=== PATIENT | male | born 1960 ===

== ENCOUNTER → 2016-11-02 | Outpatient (CLI) | payer MEDICARE, MEDICAID ==
[~2016-11-02] MED LIST: AMBIEN10 MG PO; CORTEF5 MG PO; FEOSOL325 MG PO; FLOMAX0.4 MG PO; LEVOTHROID (S100 MCG PO; METAMUCIL PACKE1 PKT PO; MIRALAX119 GM PO; MIRALAX17 GM PO; NORCO 5-325 TA1 EACH PO; XYLOCAINE 2%20 MG/ML TOP
== END | disposition disaster alternative care site (69) ==
LOC: GRAD 12:03
DX: R17 Unspecified jaundice (principal); R91.1 Solitary pulmonary nodule; K80.50 Calculus of bile duct without cholangitis or cholecystitis without obstruction; K82.8 Other specified diseases of gallbladder
CPT/HCPCS: Q9967

== ENCOUNTER 2016-11-06 08:12 | Observation (INO) | payer MEDICARE, MEDICAID ==
[~2016-11-06] VITALS: Ht 172.7 cm; Wt 84.4 kg
--- NOTE | ~2016-11-06 | OR ---
PATIENT'S NAME: MELIA RUCKER [facility] AGE: 56 Y [address] ROOM: [place] [address] LOCATION: [facility] [place] ADMIT DATE: 11/06/2016 OR/Procedure Report DISCHARGE DATE: FAMILY PHYSICIAN: Aldair Umaña MD ATTENDING PHYSICIAN: HEAVEN LYLE SURGEON: Melia Francisco MD CONCRETE MIXER: Wendy Bro PA-C. DATE OF PROCEDURE: 11/07/2016 PREOPERATIVE DIAGNOSES: 1. Cholelithiasis with developing porcelain gallbladder. 2. Choledocholithiasis, status post endoscopic retrograde cholangiopancreatography. PROCEDURE PERFORMED: Robotic-assisted laparoscopic cholecystectomy. ANESTHESIA: General endotracheal. ESTIMATED BLOOD LOSS: Less than 10 mL. SPECIMEN: Gallbladder. REASON FOR PROCEDURE: The patient is a 56-year-old male who developed some jaundice last week and was found to have elevated bilirubin and liver function tests. A CT scan showed cholelithiasis with some developing porcelain gallbladder as well as evidence of choledocholithiasis. His LFTs have actually improved since then. An ERCP was done yesterday with stent placement. After discussing the risks and benefits, the patient elected to proceed with cholecystectomy. FINDINGS: The patient had considerable fatty infiltration of the gallbladder wall, consistent with chronic cholecystitis. We did have to place an extra 5- mm assist port to help with retraction. PROCEDURE IN DETAIL: The patient was taken to the operating suite and placed in the supine position. After general endotracheal anesthesia was obtained, the abdomen was prepped with ChloraPrep and sterilely draped. Marcaine was infiltrated into the incision sites. A 2-cm transverse infraumbilical incision was made. The fascia was grasped and elevated and a Veress needle was used to obtain a pneumoperitoneum. An 8-mm bladeless robotic trocar was then passed across the abdominal wall. We then placed 3 other 8-mm bladeless trocars under direct visualization. The robot was docked to the trocars and centered on the gallbladder. We initially moved to the console and began the cholecystectomy. Unfortunately, there was so much omentum and distention that we could not see the neck and infundibulum area very well. I ended up PATIENT'S NAME: MELIA RUCKER [facility] AGE: 56 Y [address] ROOM: [address] [address] LOCATION: [facility] [place] ADMIT DATE: 11/06/2016 OR/Procedure Report DISCHARGE DATE: FAMILY PHYSICIAN: Aldair Umaña MD ATTENDING PHYSICIAN: HEAVEN LYLE scrubbing back into the case and we placed a 5-mm bladeless trocar for an assist port. The 5-mm fan retractor was then advanced through this and used to retract some of the stomach and omentum away from the neck area. I then went back to the console. We were able to grasp the fundus of the gallbladder and elevate it. The patient had a quite impressive fatty infiltration of the wall of the gallbladder. We began dissecting through this and we were able to expose the cystic duct and skeletonize it all the way up to the gallbladder wall. Once fully skeletonized, Endo Clips were placed proximally and distally and the cystic artery was divided with cautery. A single clip was placed on a small cystic artery. We then mobilized the gallbladder free of the liver bed using cautery. Once fully mobilized, the gallbladder was left in the right upper quadrant. The instruments were withdrawn. The robot was undocked. We then grasped the gallbladder and carefully withdrew it through the umbilical opening. We did have to stretch the fascial opening somewhat. The right upper quadrant was inspected, there were no signs of bleeding. Surgical clips were in place. The abdomen was scanned. No other abnormalities were seen, but the patient has quite considerable omentum that made visualization difficult. The trocars were all withdrawn. The pneumoperitoneum was evacuated. The fascia at the umbilicus was closed with a Vicryl suture. The skin incisions were closed with subcuticular Monocryl. Benzoin, Steri-Strips, and gauze dressings were applied. POSTPROCEDURE PLAN: The patient will be sent to recovery and then to the floor. We will gradually advance his diet as tolerated. We will plan on rechecking his lab work in the morning. Hopefully, he can go home tomorrow. MD MAGGIE GONZALEZ/yandel /[id number] CC: Aldair Umaña MD d: 11/07/16 1839 t: 11/10/16 [facility], OPERATIVE SUMMARY
--- NOTE | ~2016-11-06 | DS ---
PATIENT'S NAME: MEILA LEIJA [facility] AGE: 56 Y [address] ROOM: [address] [address] LOCATION: [facility] [place] ADMIT DATE: 11/06/2016 Discharge Summary DISCHARGE DATE: 11/08/2016 FAMILY PHYSICIAN: Aldair Umaña MD ATTENDING PHYSICIAN: Nataly Jacques DIAGNOSES: 1. Porcelain gallbladder. 2. Cholelithiasis. 3. Choledocholithiasis per CT. 4. Urinary Retention SUMMARY: Melia Leija is a 56-year-old male, who presented to Dr. Umaña's clinic last week with jaundice. He had noticed sierra colored stools and dark urine. He denied any abdominal pain. The patient had liver function tests that showed a total bilirubin of 3.3, alkaline phosphatase 210, AST 474, ALT 572. A CT scan was done at [facility] that showed the liver, spleen, and pancreas to be normal. The gallbladder showed wall calcification, especially at the fundus consistent with developing porcelain gallbladder. There were also possible small gallstones seen. The common bile duct was not dilated, but appeared to have 3 gallstones in the distal duct. The patient was seen by Gastroenterology and was scheduled for an ERCP on November 06. The patient states that his jaundice improved prior to admission for the ERCP. The patient did undergo the ERCP on November [address] Clements. He did a biliary sphincterotomy with common bile duct and pancreatic duct stents. No stones were seen within the common bile duct. He recommended proceeding with laparoscopic cholecystectomy and plan to return in [address] Francisco evaluated the patient on the afternoon of November 06 in consultation and recommended proceeding with removal of the gallbladder. Risks, benefits, and alternatives were discussed. The patient proceeded to the operating room on November 07 for robotic-assisted laparoscopic cholecystectomy. Please see his procedure note for specifics. Postoperatively, the patient was allowed activity as tolerated. Diet was advanced as tolerated. Sabina was ordered for pain control along with Tylenol. Zofran was ordered for nausea. On the morning of postop day #1, the patient was sore. He had no nausea. He was voiding small amounts. Vital signs were stable. White blood cell count was 14.4, hemoglobin 10.1. Liver function tests were continuing to improve with total bilirubin of 0.8, alkaline phosphatase 158, AST 45, and ALT 107. The patient was motivated to go home today. We will check a postvoid bladder scan, and as long as he is emptying okay, then we will plan on discharge later today. DISCHARGE INSTRUCTIONS: Include no restrictions on diet. Activity as tolerated. He will remove the dressings in 2 to 3 days. He will follow up with Dr. Francisco in 1 to 2 weeks and follow up with Gastroenterology for stent removal in 2 weeks. PATIENT'S NAME: MELIA LEIJA [facility] AGE: 56 Y [address] ROOM: [place] [address] LOCATION: [facility] [place] ADMIT DATE: 11/06/2016 Discharge Summary DISCHARGE DATE: 11/08/2016 FAMILY PHYSICIAN: Aldair Umaña MD ATTENDING PHYSICIAN: Nataly Jacques DISCHARGE MEDICATIONS: Include resuming his usual home medicines including, 1. Levothroid 100 mcg p.o. daily. 2. Xylocaine 2% Jelly as needed. 3. Cortef 25 mg in the morning and 12.5 mg every evening. 4. MiraLAX powder 17 g p.o. daily. 5. Metamucil packet 1 packet p.o. daily p.r.n. A prescription was written for Sabina 5/325 one to two p.o. q.4 hours p.r.n. pain, dispensing 20 with no refills. For specifics on day-to-day care, please refer to the hospital chart. DELFINO ALMARAZ PA-C FOR MELIA FRANCISCO MD KDK/modl /[id number] CC: MD Nataly Crawford APRN d: 11/09/16 0426 t: 11/13/16 1217, DISCHARGE SUMMARY
--- NOTE | ~2016-11-06 | CON ---
PATIENT'S NAME: MELIA LEIJA [facility] AGE: 56 Y [address] ROOM: [place] [address] LOCATION: [facility] [place] ADMIT DATE: 11/06/2016 Consultation DISCHARGE DATE: FAMILY PHYSICIAN: Aldair Umaña MD ATTENDING PHYSICIAN: NATALY JACQUES DATE OF CONSULTATION: 11/06/2016 REFERRING PHYSICIAN: CHRIS HERNANDEZ MD CONSULTATION NOTE REQUESTING PHYSICIAN: Nataly Jacques APRN with Gastroenterology. REASON FOR CONSULTATION: Porcelain gallbladder by CT and choledocholithiasis by CT. HISTORY OF PRESENT ILLNESS: Melia Leija is a 56-year-old male who states he was in his usual state of health up until the Easter when he started to notice jaundice, dark urine, and sierra-colored stools. He states that they got worse over the next couple days and he presented to Dr. Umaña's office for evaluation on November 01. The patient was found to have a bilirubin of 3.3, alkaline phosphatase 210, AST 474, and ALT 572. The patient subsequently had a CT scan done at [facility] that showed the liver, spleen, and pancreas to be normal. The gallbladder showed wall calcification especially at the fundus consistent with developing porcelain gallbladder. There were also possible small stones in the gallbladder. The common bile duct was not dilated, but there appeared to be at least three gallstones in the distal duct. The patient also had a prior history of a nodule in the right lung which had been followed by CT and this remained stable. The patient was scheduled with Gastroenterology. Nataly Jacques APRN contacted myself on November 02 requesting that we coordinate removal of the gallbladder with the ERCP. The patient states that he had been having indigestion for the past couple weeks. He denies any abdominal pain. No nausea or vomiting. He had never noticed any issues prior to two weeks ago. The patient states that his urine and stool have returned to normal. PAST MEDICAL HISTORY: ALLERGIES: NONE. MEDICATIONS: PATIENT'S NAME: MELIA LEIJA [facility] AGE: 56 Y [address] ROOM: [place] [address] LOCATION: [facility] [place] ADMIT DATE: 11/06/2016 Consultation DISCHARGE DATE: FAMILY PHYSICIAN: Aldair Umaña MD ATTENDING PHYSICIAN: NATALY JACQUES Include: 1. Xylocaine 2% jelly topically p.r.n. 2. Levothroid 100 mcg p.o. q. day. 3. Hydrocortisone 25 mg p.o. q.a.m. and 12.5 mg p.o. at bedtime. 4. MiraLAX powder 17 g p.o. q. day p.r.n. constipation. 5. Metamucil 1 packet p.o. q. day p.r.n. constipation. ILLNESSES: 1. History of pituitary tumor status post two brain surgeries and radiation. Now with resultant short-term memory. 2. Hypothyroidism. 3. Hypercholesterolemia. 4. Adrenal insufficiency. PAST SURGICAL HISTORY: Operations include: 1. Two brain surgeries. 2. Ankle surgery. 3. Colonoscopy, August 2015. SOCIAL HISTORY: The patient lives alone. He works two part-time jobs, one for [employer] and [employer] and the other driving the ride bus. He states that he quit smoking 1-2 years ago. He was smoking 2 packs of cigarettes per day and had done so for approximately 40 years. He also quit drinking alcohol about 5 years ago and reports prior heavy use. He does have family around the neighboring town but nobody who could necessarily come and stay with him. FAMILY HISTORY: Not obtained. REVIEW OF SYSTEMS: The patient denies any recent coughs or colds. No shortness of breath or chest pain. His bowels have been soft. No blood in his stool. No pain or frequency of urination. He states that he did have some urgency during the time of the jaundice but that has gotten better. PHYSICAL EXAMINATION: VITAL SIGNS: Per nursing sheet. GENERAL: A 56-year-old male, who is alert, pleasant, cooperative, in no acute distress. EYES, EARS, NOSE, AND THROAT: Grossly normal. LUNGS: Clear. HEART: Regular. ABDOMEN: Bowel sounds present. Abdomen is soft, with very mild tenderness in PATIENT'S NAME: MELIA LEIJA [facility] AGE: 56 Y [address] ROOM: [address] [address] LOCATION: [facility] [place] ADMIT DATE: 11/06/2016 Consultation DISCHARGE DATE: FAMILY PHYSICIAN: Aldair Umaña MD ATTENDING PHYSICIAN: FREEZE,NATALY M the right upper quadrant. He has a small epigastric scar that is from a mole removal. EXTREMITIES: The patient appears to move all extremities equally. LABORATORY DATA: Laboratory work from November 01 showed a white blood cell count of 10.8, hemoglobin 13.3, hematocrit 40.7, and platelets 296,000. Sodium 137, potassium 4.3, chloride 104, CO2 of 24, BUN 15, creatinine 1.20, total bilirubin 3.3, alkaline phosphatase 210, AST 474, ALT 572, and amylase 78. A CT scan done on November 02 again showed the lung nodule to be stable. The liver, spleen, and pancreas were normal. The gallbladder showed the wall calcification consistent with developing porcelain gallbladder. Possible small gallstones present. At least three stones were seen in the common bile duct. ERCP completed today showed no common bile duct stone. The common bile duct was not dilated. The pancreatic duct and common bile duct stents were placed. ASSESSMENT: 1. A 56-year-old male with recent history of jaundice with CT scan findings of choledocholithiasis and a porcelain gallbladder status post endoscopic retrograde cholangiopancreatography. 2. History of pituitary tumor status post brain surgery and radiation. PLAN: I discussed the findings on CT scan with the patient. Discussed recommendations for removal of the gallbladder given the history that he most likely passed a gallstone, but also with the concern for porcelain gallbladder. I discuss the operation being laparoscopic with potential of switching to an open procedure. If we are able to complete this laparoscopically, he would be ready to discharge home within 12 to 24 hours postoperatively. We would expect that he would be able to ambulate and get back to his normal activities within about a week. The operation along with the risks of bleeding, infection, injury to other structures, bile leak, heart problems, lung problems, etc, were discussed. The patient's questions and concerns were addressed. Dr. Francisco will be seeing the patient momentarily. We will review over the CT scan findings and labs and will make final recommendations in regard to removal of the gallbladder. The patient will be tentatively scheduled for a laparoscopic cholecystectomy tomorrow. Since the patient lives alone and does not have anybody to help, I would expect that he will need to stay the night and be discharged to home on SundayNovember 08. The patient's questions and concerns were addressed. Dr. Francisco again will be seeing the patient momentarily, is involved in assessment and plan, and is available for supervision. PATIENT'S NAME: MELIA LEIJA [facility] AGE: 56 Y [address] ROOM: [address] [address] LOCATION: [facility] [place] ADMIT DATE: 11/06/2016 Consultation DISCHARGE DATE: FAMILY PHYSICIAN: Aldair Umaña MD ATTENDING PHYSICIAN: NATALY JACQUES DELFINO ALMARAZ PA-C FOR MELIA FRANCISCO MD KDK/óscarl /[id number] d: 11/06/16 1918 t: 11/13/16 1219, CONSULTATION REPORT
--- NOTE | ~2016-11-06 | HP ---
PATIENT'S NAME: MELIA RUCKER [facility] AGE: 56 Y [address] ROOM: [place] [address] [place]: [facility] [place]MIT DATE: 11/06/2016 History & Physical DISCHARGE DATE: FAMILY PHYSICIAN: Rajat Layton MD ATTENDING PHYSICIAN: HEAVEN LYLE DATE OF SERVICE: CHIEF COMPLAINT: Porcelain gallbladder. HISTORY OF PRESENT ILLNESS: The patient is a 56-year-old male who I saw on the 01/11 with complaints of dark urine and painless jaundice. His evaluation revealed elevated ALT of 572, AST of 474, alkaline phosphatase of 210, and bilirubin of 3.3. His amylase is normal. He is subsequent for a CT scan, which did not show any mass present like we are suspicious for but did shows three common bile duct stones with the biggest one being 11 mm in size. He also was found to have a porcelain gallbladder. He subsequently had an ERCP done today, which did not show any stones and stent was placed by Dr. Clements, but now will be admitted and will have his gallbladder removed for porcelain gallbladder. In the morning by Dr. Francisco. He is clinically stable at this time. PAST MEDICAL HISTORY: Significant for: 1. Adrenal insufficiency. 2. Anal stenosis. 3. Anemia of chronic disease. 4. Chronic constipation. 5. Overweight with a BMI of 29. 6. Cigarette and nicotine dependence in remission. 7. Diverticulosis. 8. Hyperlipidemia. 9. Hyponatremia. 10. Hypopituitarism. 11. History of meningioma. 12. Pituitary macroadenoma. 13. Hypothyroidism. 14. Prediabetes. 15. History of pulmonary nodules. CHRONIC MEDICATIONS: Include levothyroxine 100 mcg daily and hydrocortisone 5 tablets in the morning. He was supposed to be taking that for now, but he does not take them routinely. PATIENT'S NAME: MELIA RUCKER [facility] AGE: 56 Y [address] ROOM: [place] [address] LOCATION: [facility] [place] ADMIT DATE: 11/06/2016 History & Physical DISCHARGE DATE: FAMILY PHYSICIAN: Rajat Layton MD ATTENDING PHYSICIAN: HEAVEN LYLE ALLERGIES: NONE. PRIOR SURGERIES: He had ankle surgery in 1990. He has had a colonoscopy done and a pituitary removal by transnasal approach in 1995 and 1997. SOCIAL HISTORY: He is a former smoker. Does not currently smoke. He had smoked one pack per day. He does drink caffeine everyday. Does not drink alcohol at all. FAMILY HISTORY: Unremarkable. REVIEW OF SYSTEMS: Denies any chest pain or pressure, shortness of breath, orthopnea, PND. No melena, hematochezia, bright red blood per rectum. All other review of systems are negative. PHYSICAL EXAMINATION: VITAL SIGNS: Blood pressure 1/168 temperature 98.4, weight 190 pounds. Height 5 feet 8 inches. GENERAL APPEARANCE: Nontoxic-appearing male in no acute distress. HEENT: Head is normocephalic and atraumatic. Ears, TMs are clear intact bilaterally. Nose patent. Throat clear. NECK: Supple without lymphadenopathy, JVD, thyromegaly, or bruits. HEART: Regular rate and rhythm without audible murmur. LUNGS: Clear to auscultation bilaterally without wheezes, rhonchi, or rales. ABDOMEN: Soft and nontender and nondistended. Bowel sounds positive. There is no hepatosplenomegaly. No guarding or rebound. EXTREMITIES: No clubbing, cyanosis, or edema. NEURO: No focal deficits. ASSESSMENT: 1. Choledocholithiasis, resolved. 2. Porcelain gallbladder. 3. History of adrenal insufficiency. 4. Pituitary macroadenoma status post resection with resultant hypopituitarism and hypothyroidism. 5. History of diverticulosis. 6. Anemia of chronic disease. 7. History of anal stenosis. PLAN: PATIENT'S NAME: MELIA RUCKER [facility] AGE: 56 Y [address] ROOM: [address] [address] LOCATION: [facility] [place] ADMIT DATE: 11/06/2016 History & Physical DISCHARGE DATE: FAMILY PHYSICIAN: Rajat Layton MD ATTENDING PHYSICIAN: HEAVEN LYLE We will go ahead and place him on observation status. Admit him overnight. Dr. Francisco will see him and will get him set up for a laparoscopic cholecystectomy, if possible. Further recommendations pending the outcome of that. He has voiced understanding of this plan. The rest of his medical issues really are very stable at this point and he is overall feeling good. RAJAT LAYTON MD TAB/modl /[id number] D: [id number] T: [id number] HISTORY & PHYSICAL
[~2016-11-06 08:12] MED LIST changes: -FLOMAX0.4 MG PO; -METAMUCIL PACKE1 PKT PO; -MIRALAX119 GM PO; -NORCO 5-325 TA1 EACH PO
[2016-11-06] MEDS ORDERED: METAMUCIL PACKE1 PKT PO (08:46)
[2016-11-06 14:46] LABS: BASOPHIL # 0.1 K/uL (0.0-0.2); BASOPHIL % 0.6 %; EOSINOPHIL % 0.3 %; HEMATOCRIT 35.6 % (37.0-53.0); HEMOGLOBIN 11.2 g/dL (12.0-17.0); IMMATURE GRANULOCYTE # 0.1 K/uL (0.0-0.3); IMMATURE GRANULOCYTE % 1.2 %; LYMPHOCYTE # 1.2 K/uL (0.8-4.0); LYMPHOCYTE % 11.7 %; MCH 27.6 pg (27.0-34.0); MCHC 31.5 gm/dL (32.0-36.5); MCV 87.7 fl (83.0-98.0); MONOCYTE # 0.2 K/uL (0.0-1.0); MONOCYTE % 2.1 %; MPV 10.3 fl (9.4-12.4); NEUTROPHIL # (ANC) 8.9 K/uL (1.4-9.0); NEUTROPHIL % 84.1 %; NRBC % 0 /100WBC (0-0.00); PLATELET COUNT 227 K/uL (150-450); RBC 4.06 M/uL (4.00-6.00); RDW-CV 15.1 % (11.9-14.6); WBC 10.5 K/uL (4.0-11.0)
[2016-11-06 15:07] LABS: ALBUMIN 3.2 gm/dL (3.5-5.0); ALK PHOS 223 IU/L (33-138); ALT 185 IU/L (12-78); ANION GAP 12.9 (10.0-19.0); AST 105 IU/L (10-40); BLOOD UREA NITROGEN 15 mg/dL (6-24); CALCIUM 8.7 mg/dL (8.5-10.5); CHLORIDE 107 mMol/L (96-110); CO2 25 mMol/L (22-32); CREATININE 1.2 mg/dL (0.6-1.3); ESTIMATED GFR (MDRD EQUATION) > 60; POTASSIUM 3.9 mMol/L (3.7-5.1); SODIUM 141 mMol/L (135-145); TOTAL BILIRUBIN 0.8 mg/dL (0.0-1.5); TOTAL PROTEIN 6.9 g/dL (6.0-8.4)
--- NOTE | 2016-11-06 18:17 | NUR ---
Significant Event: Patient is alert and oriented. Had an ERCP done today. 2 stents were placed, ? of a possible fistula in the small bowel where a stone could have gone through. Patient Has NS running at 100ml/hr. Able to have jello and popsicles, will be NPO after midnight. Will have surgery in the morning with . Calm and cooperative with all cares. Patient states he is tender but does not have pain. Follow up: Pre-op checklist
--- NOTE | 2016-11-07 05:31 | NUR ---
Significant Event: PATIENT IS ALERT AND ORIENTED X4 AMBULATES INDEPENDENTLY IN ROOM. IV TO L WRIST RUNNING AT 100ML HR. HAD AN ERCP YESTERDAY WITH 2 STENTS PUT IN. HAVING GALLBLADDER REMOVED THIS AM. HX OF HTN, CRAINAL SURGERY. NO COMPLAINTS OF PAIN OR DISCOMFORT. Follow up:
[2016-11-07 05:46] LABS: BASOPHIL # 0.1 K/uL (0.0-0.2); BASOPHIL % 0.7 %; EOSINOPHIL # 0.2 K/uL (0.0-0.5); EOSINOPHIL % 1.5 %; HEMATOCRIT 32.5 % (37.0-53.0); HEMOGLOBIN 10.2 g/dL (12.0-17.0); IMMATURE GRANULOCYTE # 0.1 K/uL (0.0-0.3); IMMATURE GRANULOCYTE % 0.5 %; LYMPHOCYTE # 2.7 K/uL (0.8-4.0); MCH 27.3 pg (27.0-34.0); MCHC 31.4 gm/dL (32.0-36.5); MCV 87.1 fl (83.0-98.0); MONOCYTE # 0.6 K/uL (0.0-1.0); MONOCYTE % 5.1 %; MPV 10.1 fl (9.4-12.4); NEUTROPHIL # (ANC) 7.3 K/uL (1.4-9.0); NEUTROPHIL % 67.2 %; NRBC % 0 /100WBC (0-0.00); PLATELET COUNT 200 K/uL (150-450); RBC 3.73 M/uL (4.00-6.00); RDW-CV 15.1 % (11.9-14.6); WBC 10.9 K/uL (4.0-11.0)
[2016-11-07 06:07] LABS: ALBUMIN 2.8 gm/dL (3.5-5.0); ALK PHOS 184 IU/L (33-138); ALT 135 IU/L (12-78); ANION GAP 9.9 (10.0-19.0); AST 68 IU/L (10-40); BLOOD UREA NITROGEN 17 mg/dL (6-24); CALCIUM 8.1 mg/dL (8.5-10.5); CHLORIDE 108 mMol/L (96-110); CO2 28 mMol/L (22-32); CREATININE 1.1 mg/dL (0.6-1.3); ESTIMATED GFR (MDRD EQUATION) > 60; POTASSIUM 3.9 mMol/L (3.7-5.1); SODIUM 142 mMol/L (135-145); TOTAL BILIRUBIN 0.9 mg/dL (0.0-1.5)
--- NOTE | 2016-11-07 09:52 | NUR ---
PT TAKEN DOWN TO PRE-OP FOR SURGERY
--- NOTE | 2016-11-07 16:24 | NUR ---
Attempted to see patient at 1030 but he was down for surgery. Will follow up with patient tomorrow.
--- NOTE | 2016-11-07 16:32 | NUR ---
Significant Event: PT ARRIVED ON FLOOR FROM PACU AT 1200. POST OP VITALS CONT LAST HOURLY AT 1845. PT HAS AMBULATED ALL AROUND IN THE HALLS AND IN ROOM. DENIES DISCOMFORT. 5 POKE HOLES WITH DRESSINGS PRESENT. HOME TOMORROW. TAKES FOOD AND FLUIDS WELL. VOIDS WELL. Follow up:
[2016-11-08 05:30] LABS: BASOPHIL # 0.1 K/uL (0.0-0.2); BASOPHIL % 0.6 %; EOSINOPHIL # 0.2 K/uL (0.0-0.5); EOSINOPHIL % 1.3 %; HEMATOCRIT 32.2 % (37.0-53.0); HEMOGLOBIN 10.1 g/dL (12.0-17.0); IMMATURE GRANULOCYTE # 0.1 K/uL (0.0-0.3); IMMATURE GRANULOCYTE % 0.6 %; LYMPHOCYTE # 2.6 K/uL (0.8-4.0); LYMPHOCYTE % 18.4 %; MCH 27.9 pg (27.0-34.0); MCHC 31.4 gm/dL (32.0-36.5); MONOCYTE # 1.1 K/uL (0.0-1.0); MONOCYTE % 7.6 %; MPV 10.3 fl (9.4-12.4); NEUTROPHIL # (ANC) 10.3 K/uL (1.4-9.0); NEUTROPHIL % 71.5 %; NRBC % 0 /100WBC (0-0.00); PLATELET COUNT 193 K/uL (150-450); RBC 3.62 M/uL (4.00-6.00); RDW-CV 15.2 % (11.9-14.6); WBC 14.4 K/uL (4.0-11.0)
[2016-11-08 05:45] LABS: ALBUMIN 2.8 gm/dL (3.5-5.0); ALK PHOS 158 IU/L (33-138); ALT 107 IU/L (12-78); ANION GAP 10.8 (10.0-19.0); AST 45 IU/L (10-40); BLOOD UREA NITROGEN 20 mg/dL (6-24); CALCIUM 8.1 mg/dL (8.5-10.5); CHLORIDE 107 mMol/L (96-110); CO2 28 mMol/L (22-32); CREATININE 1.2 mg/dL (0.6-1.3); ESTIMATED GFR (MDRD EQUATION) > 60; POTASSIUM 3.8 mMol/L (3.7-5.1); SODIUM 142 mMol/L (135-145); TOTAL BILIRUBIN 0.8 mg/dL (0.0-1.5)
--- NOTE | 2016-11-08 05:56 | NUR ---
Significant Event: Patient is A&O x 3. Up ad malu in room. Has lap sites x 5 to abdomen. Gauze dressing with shadow drainage. Tolerated dinner well. IV to L) wrist SL. Complained of tolerable pain to right side of abdomen and R) shoulder. Rested well throughout the night. Follow up: Patient to D/C home today.
[2016-11-08 10:12] LABS: BILIRUBIN URINE NEGATIVE (NEGATIVE); BLOOD URINE NEGATIVE /UL (NEGATIVE); COLOR URINE YELLOW (YELLOW); GLUCOSE URINE NEGATIVE (NEGATIVE); KETONE URINE NEGATIVE (NEGATIVE); LEUKOCYTES URINE NEGATIVE /UL (NEGATIVE); NITRITE URINE NEGATIVE (NEGATIVE); PROTEIN URINE NEGATIVE (NEGATIVE); TURBIDITY URINE CLEAR (CLEAR); UROBILINOGEN URINE NORMAL (NORMAL)
[2016-11-08] MEDS ORDERED: NORCO 5-325 TA1 EACH PO (15:06)
[2016-11-08] MEDS ORDERED: FLOMAX0.4 MG PO (15:07)
--- NOTE | 2016-11-08 15:15 | NUR ---
D: ORDERS RECEIVED FOR THE PATIENT TO BE DISCHARGED TO HOME TODAY. I: DISMISSAL INSTRUCTIONS WERE PREPARED AND REVIEWED WITH THE PATIENT VIRTUALLY. THE FOLLOWING INFORMATION WAS DISCUSSED INCLUDING [employer]RAMES TEACHING SHEETS PROVIDED: DISCHARGE INSTRUCTIONS FOR LAP CHOLECYSTECTOMY, ERCP, NORCO, FLOMAX AND PREVENTING DVT. REVIEWED FOLLOW UP APPOINTMENT, ERCP AT [facility] ON November AT 0830 AND NEW PRESCRIPTION HE WILL NEED TO TAKE TO HIS PHARMACY TO FILL. R: THE PATIENT VERBALIZED UNDERSTANDING OF THE DISMISSAL EDUCATION AT THE TIME OF TEACHING WITH NO FURTHER QUESTIONS. P: THE ABOVE INFORMATION WAS SHARED WITH THE PRIMARY NURSE AND THE CHARGE NURSE THAT THE PATIENT'S DISMISSAL EDUCATION WAS COMPLETED. THE PATIENT IS READY FOR DISCHARGE TO THE FRONT DOOR VIA WHEEL CHAIR BY NURSING STAFF.
--- NOTE | 2016-11-08 17:17 | NUR ---
Significant Event: Discharged home with all belongings, virtual nurse did discharge training. A/O x3, pleasant and cooperative with cares. c/o abdominal discomfort. Troubles urinating this AM, did post void residual and showed 681 in bladder, straight cath at 0935 with 600 ml out, urine sent down to lab, unremarkable results. Flomax started. Was able to urinate effectively after the one time straight cath. 5 stab sites to lower abdomen, all having some drainage, r) site saturated x2 and changed the dressing both times, all other dressings changed in AM with little drainage after that. IV removed before dismissal. Follow up:
[2016-11-15] MEDS ORDERED: MIRALAX119 GM PO (10:41)
== END 2016-11-08 15:50 | disposition disaster alternative care site (69) ==
LOC: GEND 08:12 → GMSU 08:12 → GEND 08:13 → GMSU 08:13 → GPOC 15:00 → GMSU 11-08 15:50
PROVIDERS: Family Medicine; Internal Medicine Gastroenterology; Physician Assistant; ADMIT Registered Nurse
PROC: 0F7D8ZZ Dilation of Pancreatic Duct, Via Natural or Artificial Opening Endoscopic (ICD-10-PCS; 2016-11-06)
PROC: 0FT44ZZ Resection of Gallbladder, Percutaneous Endoscopic Approach (ICD-10-PCS; principal; 2016-11-07)
PROC: 8E0W8CZ Robotic Assisted Procedure of Trunk Region, Via Natural or Artificial Opening Endoscopic (ICD-10-PCS; 2016-11-07)
DX: K81.1 Chronic cholecystitis (principal); D64.9 Anemia, unspecified; K59.09 Other constipation; E78.5 Hyperlipidemia, unspecified; E87.1 Hypo-osmolality and hyponatremia; E23.0 Hypopituitarism; E03.9 Hypothyroidism, unspecified; R73.03 Prediabetes; R79.89 Other specified abnormal findings of blood chemistry; E66.3 Overweight; Z68.29 Body mass index [BMI] 29.0-29.9, adult; Z87.891 Personal history of nicotine dependence; Z98.890 Other specified postprocedural states; Z79.899 Other long term (current) drug therapy
CPT/HCPCS: C1769; C2625; G0378; J0131; J0694; J1720; J2250; J2405; J2930; J7030; J7120

== ENCOUNTER → 2016-11-23 | Day surgery (SDC) | payer MEDICARE, MEDICAID ==
[~2016-11-23] VITALS: Ht 172.7 cm; Wt 85.8 kg
[~2016-11-23] MED LIST changes: +FLOMAX0.4 MG PO; +METAMUCIL PACKE1 PKT PO; +MIRALAX119 GM PO; +NORCO 5-325 TA1 EACH PO
== END | disposition disaster alternative care site (69) ==
LOC: GPOC 11-15 11:00 → GEND 07:06
PROC: 0FPD8DZ Removal of Intraluminal Device from Pancreatic Duct, Via Natural or Artificial Opening Endoscopic (ICD-10-PCS; principal; 2016-11-23)
DX: K80.50 Calculus of bile duct without cholangitis or cholecystitis without obstruction (principal); K83.8 Other specified diseases of biliary tract; Z46.59 Encounter for fitting and adjustment of other gastrointestinal appliance and device; K59.09 Other constipation; E78.5 Hyperlipidemia, unspecified; E87.1 Hypo-osmolality and hyponatremia; E23.0 Hypopituitarism; E03.9 Hypothyroidism, unspecified; R73.03 Prediabetes; Z87.891 Personal history of nicotine dependence; Z79.899 Other long term (current) drug therapy; Z90.49 Acquired absence of other specified parts of digestive tract; Z98.890 Other specified postprocedural states
CPT/HCPCS: C1769; J7030

== ENCOUNTER → 2017-03-05 | Outpatient (CLI) | payer MEDICARE, MEDICAID | LOC: LKCL 13:17 | DX: R19.7 Diarrhea, unspecified (principal) ==